=== PATIENT | female | born 1985 | race African-American/Black ===

== ENCOUNTER 2016-12-11 08:09 | Emergency (ER) | payer OTHER ==
[2016-12-11 08:19] VITALS: BP 137/68
[2016-12-11] MEDS ORDERED: ZOFRAN ODT PO ONE (08:43)
[2016-12-11 09:06] LABS: URINE SOURCE CLEAN CATCH
[2016-12-11 09:11] LABS: BILIRUBIN URINE NEGATIVE (NEGATIVE); BLOOD URINE 1+ (NEGATIVE); CLARITY SL. CLOUDY (CLEAR); COLOR YELLOW; GLUCOSE URINE NEGATIVE (NEGATIVE); LEUKOCYTES URINE NEGATIVE (NEGATIVE); NITRITE URINE NEGATIVE (NEGATIVE); PROTEIN URINE NEGATIVE (NEGATIVE); URINE MICROSCOPIC NEEDED? YES; UROBILINOGEN URINE NORMAL
--- NOTE | 2016-12-11 09:16 | PROVIDER DOCUMENTATION ---
HPI-General Adult - General Chief Complaint: Flu Symptoms Stated Complaint: FLU LIKE SX/UTI SX Time Seen by Provider: 12/11/16 08:21 Source: patient Allergies/Adverse Reactions: Patient Allergies Allergy/AdvReac Type Severity Reaction Status Date / Time Penicillins AdvReac SWELLING Verified 10/23/15 10:13 - History of Present Illness -Gen Adult Nature of Presenting Problems: patient is a 30 y/o F that presents with 2 days of flu like symptoms and several weeks of lower abdominal pain ( last was 5 days ago). patient has cough , sore throat, bodyaches, chills/fevers, and runny nose, she also had constipation Location of Pain/Injury: reports: generalized Pain Radiation: reports: no radiation Quality of Pain: reports: aching Severity: reports: mild Onset/Duration: reports: gradual, 2 days ago Timing: reports: still present, constant Context/Activities at Onset: reports: none Modifying Factors: improves with: nothing Associated Symptoms: reports: cough, EENT symptoms, fever/chills, muscle aches, weakness. denies: chest pain, diarrhea, genitourinary problems, headaches, nausea, shortness of breath, vomiting Similar Symptoms Previously?: No Recently seen or treated by another doctor?: No Review of Systems - Adult - REVIEW OF SYSTEMS - ADULT Constitutional: reports: chills, fever Eyes: denies: blurred vision, double vision Ears, Nose, Mouth & Throat: reports: sinus problem, throat pain. denies: ear pain, throat swelling Cardiovascular: denies: chest pain Respiratory: reports: cough. denies: shortness of breath, wheezing Gastrointestinal: reports: abdominal pain, constipation. denies: diarrhea, nausea, vomiting Genitourinary: reports: flank pain. denies: see HPI, frequency Musculoskeletal: reports: muscle aches. denies: joint pain, muscle weakness Integumentary: reports: no symptoms reported Neurological: reports: no symptoms reported Psychiatric: reports: no symptoms reported Endocrine: reports: no symptoms reported Hematologic/Lymphatic: reports: no symptoms reported Allergic/Immunologic: reports: no symptoms reported All Other Systems: Reviewed and Negative Past History - Adult - PAST MEDICAL HISTORY-ADULT Review of Records: reports: Old Records Reviewed, Nursing Assessment Review, Medications Reviewed Psychiatric: reports: anxiety - PRIOR SURGERIES/PROCEDURES Surgical/Procedure History: reports: BTL, other (D&C) - IMMUNIZATION STATUS Childhood Immunizations: See Nurse Assessment Flu Vaccine: See Nurse Assessment - FAMILY HISTORY Family History: reviewed, not pertinent - SOCIAL HISTORY Smoking: non-smoker Alcohol Use Frequency: occasionally Physical Exam-General - PHYSICAL EXAM-ADULT Initial Vital Signs Reviewed: Yes - CONSTITUTIONAL General Appearance: alert, no apparent distress - EYES Eyes: PERRL/EOMI, pink conjunctivae - HEAD, EARS, NOSE, MOUTH & THROAT HENMT: normocephalic/atraumatic, moist mucous membranes, normal ENT inspection, TMs normal, pharynx normal. negative: pharyngeal erythema, tonsillar exudate, TM abnormal - NECK Neck: non-tender, full range of motion, normal inspection - RESPIRATORY Respiratory: lungs clear, normal breath sounds, no respiratory distress, no accessory muscle use - CARDIOVASCULAR Cardiovascular: regular rate, rhythm, no edema, no murmur - GASTROINTESTINAL (ABDOMEN) Abdominal Exam: normal bowel sounds, non tender, soft, no organomegaly, no pulsatile mass - MUSCULOSKELETAL Back Exam: normal inspection, no CVA tenderness, no vertebral tenderness Extremity: normal range of motion, non-tender, normal inspection, no calf tenderness, normal capillary refill, pelvis stable - SKIN Integumentary: normal color, warm/dry - NEUROLOGIC Neurologic: grossly normal, no motor/sensory deficits - PSYCHIATRIC Psych/Mental Status: normal mood/affect, normal thought content, normal thought process, oriented x 3 Progress - PLAN OF CARE/RESULTS Progress/Plan/Lab Results: plan of care-swabs, xrays, meds Vital Signs Temp Pulse Resp BP Pulse Ox 12/11/16 08:16 100.6 F H 109 H 20 137/68 97 Penicillins Adverse Reaction (Verified 10/23/15 10:13) SWELLING Ibuprofen [Motrin] 800 mg PO Q8H PRN PRN #20 tablet 07/18/16 Loratadine [Claritin] 10 mg PO DAILY #14 tablet 07/18/16 Sulfamethoxazole/Trimethoprim [Bactrim Ds Tablet] 1 each PO BID #20 tablet 07/18 Laboratory 12/11/16 12/11/16 12/11/16 08:50 08:50 08:20 Urine Source CLEAN CATCH Urine Color YELLOW Urine Clarity SL. CLOUDY A Urine pH 7.0 Ur Specific [place] 1.010 Urine Protein NEGATIVE Urine Ketones NEGATIVE Urine Blood 1+ A Urine Nitrite NEGATIVE Urine Bilirubin NEGATIVE Urine Urobilinogen NORMAL Urine Microscopic RBC 10-20 A Urine WBC NEGATIVE Urine Microscopic WBC <10 Ur Epithelial Cells >10 A Urine Bacteria 1+ Urine Glucose NEGATIVE Urine Test NEGATIVE Influenza A (Rapid) Influenza B (Rapid) Group A Strep Rapid NEGATIVE 12/11/16 08:20 Urine Source Urine Color Urine Clarity Urine pH Ur Specific [place] Urine Protein Urine Ketones Urine Blood Urine Nitrite Urine Bilirubin Urine Urobilinogen Urine Microscopic RBC Urine WBC Urine Microscopic WBC Ur Epithelial Cells Urine Bacteria Urine Glucose Urine Test Influenza A (Rapid) NEGATIVE Influenza B (Rapid) NEGATIVE Group A Strep Rapid Orders Category Date Time Status CHEST-2 VIEWS [RAD] Stat Exams 12/11/16 09:28 Taken RENAL STONE SEARCH [CT] Stat Exams 12/11/16 08:[address] Stat Lab 12/11/16 08:[address] Stat Lab 12/11/16 08:20 Completed TEST-URINE [PREG] Stat Lab 12/11/16 08:[address] [URINALYSIS] Stat Lab 12/11/16 08:50 Completed URINE MICROSCOPIC [URINALYSIS] Stat Lab 12/11/16 08:50 Completed Ondansetron Odt [Zofran Odt] Med 12/11/16 08:43 Discontinued 4 mg PO NOW ONE pt will be d/c home f/u with pcp, rx given, pt was clinically stable and understood results and instructions, Orders Category Date Time Status CHEST-2 VIEWS [RAD] Stat Exams 12/11/16 09:28 Taken RENAL STONE SEARCH [CT] Stat Exams 12/11/16 08:[address] Stat Lab 12/11/16 08:[address] Stat Lab 12/11/16 08:20 Completed TEST-URINE [PREG] Stat Lab 12/11/16 08:[address] [URINALYSIS] Stat Lab 12/11/16 08:50 Completed URINE MICROSCOPIC [URINALYSIS] Stat Lab 12/11/16 08:50 Completed CefTRIAXONE [Rocephin] Med 12/11/16 09:49 Discontinued 1 gm IM NOW ONE Lidocaine 1% Pf [Xylocaine-Mpf 1%] Med 12/11/16 09:49 Discontinued 5 ml INJ NOW ONE Ondansetron Odt [Zofran Odt] Med 12/11/16 08:43 Discontinued 4 mg PO NOW ONE - CT/MRI 1 CT Study: Renal Stone Impression: Abnormal CT Results: no stones, no hydro, constipation Departure - Departure Time of Disposition Order: 09:47 DIAGNOSIS: Constipation, Flu-like symptoms, Bronchitis, Abdominal pain Disposition: HOME 01 Certified Medical Emergency: Emergent Condition: Stable Additional Instructions: ED Follow Up Instructions: You have been treated by a care provider in the Emergency Department. These instructions are being provided to you so you can have an understanding of how to care for yourself upon discharge. Upon discharge from the Emergency Department, you are responsible for making arrangements for follow-up care by a physician of your choice. Take all prescribed medications as directed. Return to the Emergency Department immediately for any new or worsening symptoms. You may call the Physician Referral phone number at [phone] to obtain a list of Physicians who are taking new patients. Referrals: Denny Cordero MD [Primary Care Provider] - Call for Appoint. 1-2days Instructions: Constipation, Adult, Influenza, Adult, [id number], Acute Bronchitis, Abdominal Pain, Women Attestation - Scribe Verification/Attestation Scribe:: Monroe Rose Acting as Scribe for:: Brianna Sweet Scribe documention review:: This chart was documented by a scribe and accurately reflects the service the provider performed and the decisions made by the provider. Physician Attestation - Physician Attestation I, the provider, attest to the following statement:: Brianna Sweet Physician documentation Attestation:: This documentation recorded by the scribe accurately reflects the service I personally performed and the decisions made by me.
[2016-12-11 09:18] LABS: URINE EPITHELIAL CELLS >10 /HPF (<10); URINE WBC <10 /HPF (<10)
[2016-12-11] MEDS ORDERED: XYLOCAINE-MPF 1% INJ ONE (09:49)
[2016-12-11] MEDS ORDERED: ROCEPHIN IM ONE (09:49)
--- NOTE | 2016-12-11 09:50 | Diag Imaging Result Document ---
PROCEDURE NAME: RENAL STONE SEARCH - 12/11/2016 CT ABDOMEN AND PELVIS WITHOUT ORAL OR INTRAVENOUS CONTRAST: TECHNIQUE: Dose-reduction protocol. COMPARISON: No comparison films. FINDINGS: The upper abdomen is not included on this renal stone exam. The spleen does not appear to be enlarged. No focal hepatic abnormality identified on this noncontrasted exam. No inflammation about the pancreas or gallbladder. Normal adrenal glands. No perinephric inflammation. No renal stones. No hydronephrosis. There are several pelvic calcifications near the ureters believed to be phleboliths. Normal aorta. There is stool throughout the colon. Normal appendix. No abscess. The urinary bladder is not distended. Normal uterus. Neither ovary is enlarged. IMPRESSION: 1. No renal stones or hydronephrosis. 2. Constipation. A preliminary report was given at 9:35 a.m.
[2016-12-11] MEDS ORDERED: MOTRIN PO ONE (09:55)
--- NOTE | 2016-12-11 10:29 | Diag Imaging Result Document ---
PROCEDURE NAME: CHEST-2 VIEWS - 12/11/2016 FRONTAL AND LATERAL CHEST, TWO VIEWS: FINDINGS: The lungs are well expanded. The heart is not enlarged. The vessels are not distended. There are no infiltrates. No pleural effusions. IMPRESSION: No pneumonia.
== END 2016-12-11 10:43 | disposition home or self-care (01) ==
LOC: P.ED 08:09
DX: J11.1 Influenza due to unidentified influenza virus with other respiratory manifestations (principal); K59.00 Constipation, unspecified; R10.30 Lower abdominal pain, unspecified; R50.9 Fever, unspecified; M79.1 Myalgia; R53.1 Weakness; R07.0 Pain in throat; R05 Cough; R10.9 Unspecified abdominal pain
CPT/HCPCS: 71020; 74176; 81001; 81025; 87081; 87430; 87804; 96372; J0696